=== PATIENT | female | born 1965 | race Caucasian/White ===

== ENCOUNTER 2022-02-20 15:49 | Emergency (ER) | payer OTHER, SELFPAY ==
[2022-02-20 16:04] VITALS: BP 145/90; PULSE 88; RESP 17; TEMP 37.1; O2SAT 98; BMI 26.1
[2022-02-20 16:11] LABS: Color,Urine Dark Yellow (Yellow)
[2022-02-20 16:12] LABS: Apearance,Urine Cloudy (Clear); Blood, Urine 2+ (Negative); Glucose,Urine (UA) Negative (Negative); Ketones,Urine Negative (Negative); Protein,Urine 1+ (Negative); Specific Gravity, Urine >= 1.030 (1.005-1.030)
[2022-02-20 16:13] LABS: Bilirubin,Urine Negative (Negative); UTC Leukocyte Esterase,Urine 1+ (Negative); UTC Nitrate,Urine Negative (Negative); Urobilinogen,Urine 0.2 EU/dl (0.2)
--- NOTE | 2022-02-20 16:35 | HMH.EDUTC ---
[facility] [place] Disposition Clinical Impression: UTI (urinary tract infection) Qualifiers: Urinary tract infection type: site unspecified Hematuria presence: with hematuria Qualified Code(s): N39.0 - Urinary tract infection, site not specified Disposition: Home, Self-Care Condition on Discharge: Good Instructions: Urinary Tract Infection, DI for Urinary Tract Infection (UTI) Additional Instructions: Drink plenty of fluids. Take tylenol or ibuprofen for pain or fever. Take the medications as directed. Follow up with your regular doctor. GO TO THE ER FOR ANY WORSENING SYMPTOMS The pyridium will make your urine turn orange, this is an expected side effect. It will stain your clothes if it comes into contact with them. We will culture the urine. That will tell what bacteria is causing your infection and which antibiotics will treat it best. Sometimes the first antibiotic we prescribe turns out to not work against different bacteria. So, make sure you follow up within 3 days if you are not getting better. Prescriptions: Sulfamethoxazole/Trimethoprim [Bactrim DS tablet] 1 each PO BID 7 Days #14 tab Transmission Status: Received by [facility] Fluconazole [Diflucan 150mg tab] 150 mg PO ONCE #1 tab Transmission Status: Received by [facility] Nystatin [Nystatin Cr 100,000 Units/GM 30GM] 1 applicatio TP BID 14 Days #1 gm Transmission Status: Received by [facility] Phenazopyridine HCl [Pyridium 200mg Tablet] 200 pow PO TID #6 tab Transmission Status: Received by [facility] Referrals: Provider,Referral, [Primary Care Provider] - Forms: Work/School Release Time of Disposition: 16:38 Medical Decision Making - Medical Records Medical records reviewed: No: I reviewed the patient's medical records. - Simba Inquiry Pt receiving controlled substance: No Vital Signs: 02/20/22 16:04 02/20/22 16:39 Temperature 98.7 F 98.7 F Temperature Source Oral Pulse Rate 88 Pulse Rate [Left] 88 Respiratory Rate 17 17 Blood Pressure 145/90 H Blood Pressure [Right Arm] 145/90 H Blood Pressure Mean [Right Arm] 108 02 Sat by Pulse Oximetry 98 - Lab Data Lab results reviewed: Yes: I reviewed the patient's lab results. Lab Results 02/20/22 16:11: Urine Color Dark yellow, Urine Appearance Cloudy, Urine pH 6.0, Ur Specific [place] >= 1.030, Urine Protein 1+, Urine Glucose (UA) Negative, Urine Ketones Negative, Urine Blood 2+, Urine Nitrate Negative, Urine Bilirubin Negative, Urine Urobilinogen 0.2, Ur Leukocyte Esterase 1+ A Orders (Tests/Meds): ORDERS Category Date Time Status Urine Culture Stat Micro 02/20/22 16:02 Received [facility] HPI - General Stated complaint: Possible UTI Time Seen by Provider: 02/20/22 16:35 Description of Symptoms (Recalled from Triage Doc. by RN): patient comes in for possible uti. patient states that symptoms began sunday HEENT Symptoms (Recalled from RN notes): No Resp Symptoms (Recalled from RN notes): No Skin Symptoms (Recalled from RN notes): No MS Symptoms (Recalled from RN notes): No Functional Status (Recalled from RN notes): wnl - History of Present Illness Provider Complaint: She states that for the past 2 days she has had burning with urination, low back pain and urinary frequency. - Related Data Previous Rx's Medication Instructions Recorded sulfamethoxazole 800 1 tab PO Q12H 10 Days #20 tab 01/27/21 mg-trimethoprim 160 mg tablet Azithromycin [Z-Fredy 250mg Tab*] 250 mg PO UD DOSE PK #6 tab 09/19/21 Fluconazole [Diflucan 150mg tab] 150 mg PO ONCE #1 tab 09/19/21 methylPREDNISolone [Medrol] 4 mg PO DIRECTED 6 Days #21 09/19/21 packet Fluconazole [Diflucan 150mg tab] 150 mg PO ONCE #1 tab 02/20/22 Nystatin [Nystatin Cr 100,000 1 applicatio TP BID 14 Days #1 gm 02/20/22 Units/GM 30GM] Phenazopyridine HCl [Pyridium 200 pow PO TID #6 tab 02/20/22 200mg Tablet] Sulfamethoxazole/Trimethoprim 1
[2022-02-20 16:39] VITALS: BP 145/90; PULSE 88; RESP 17; TEMP 37.1
== END 2022-02-20 16:42 | disposition home or self-care (01) ==
PROVIDERS: Emergency Provider Nurse Practitioner Family
DX: N39.0 Urinary tract infection, site not specified (principal); B96.89 Other specified bacterial agents as the cause of diseases classified elsewhere
CPT/HCPCS: 81003; 87086; 87088; 87186; 99212; G0463

== ENCOUNTER 2022-03-20 14:37 | Emergency (ER) | payer OTHER, SELFPAY ==
[2022-03-20 15:20] VITALS: BP 146/96; PULSE 82; RESP 18; TEMP 36.8; O2SAT 98; BMI 25.3
--- NOTE | 2022-03-20 15:46 | HMH.EDUTC ---
[facility] [place] Disposition Clinical Impression: UTI (urinary tract infection) Qualifiers: Urinary tract infection type: site unspecified Hematuria presence: without hematuria Qualified Code(s): N39.0 - Urinary tract infection, site not specified Disposition: Home, Self-Care Condition on Discharge: Good Instructions: Urinary Tract Infection, DI for Urinary Tract Infection (UTI), Cephalexin Additional Instructions: *Increase fluids. Water not Soda or Tea *Start antibiotic immediately and be sure to take as ordered for the FULL length of time although you should start to see improvement over the next 48 hours *Be SURE to follow up anytime for new or worsening symptoms with your family doctor. AND in 48 hours for urine culture results with your family doctor, if you do not have a doctor then you may call back to the [facility] for urine culture results and further treatment. We do recommend that you choose and establish care with a Primary Care Physician. AND follow up with them in 10-14 days to repeat UA to ensure infection is resolved and blood no longer present *Be sure to let your PCP know that we sent urine cultures from the [facility] so they can follow up to ensure that you area the on the correct antibiotic Call your doctor office and make appointment for 48 hours (2 days from today) to follow up and get the results of your urine culture and further treatment Prescriptions: cephALEXin [cephALEXin 500mg capsule*] 500 mg PO BID 7 Days #14 cap Transmission Status: [facility] Referrals: Provider,Referral, [Primary Care Provider] - As needed Time of Disposition: 15:49 Medical Decision Making - Simba Inquiry Pt receiving controlled substance: No Simba was queried for this patient: No Vital Signs: 03/20/22 15:20 Temperature 98.2 F Temperature Source Oral Pulse Rate [Right Brachial] 82 Respiratory Rate 18 Blood Pressure [Right Arm] 146/96 H Blood Pressure Mean [Right Arm] 112 Blood Pressure Source [Right Arm] Automatic Cuff Blood Pressure Position [Right Arm] Sitting 02 Sat by Pulse Oximetry 98 Oxygen Delivery Method Room Air - Lab Data Lab results reviewed: Yes: I reviewed the patient's lab results. Orders (Tests/Meds): ORDERS Category Date Time Status Urine Culture Stat Micro 03/20/22 15:22 Received [facility] [place] HPI - General Stated complaint: kidney pressure Time Seen by Provider: 03/20/22 15:46 Mode of Arrival: Ambulatory Source of Information: Patient Limitations: No Limitations Description of Symptoms (Recalled from Triage Doc. by RN): PATIENT C/O BLADDER PRESSURE SINCE YESTERDAY HEENT Symptoms (Recalled from RN notes): No Resp Symptoms (Recalled from RN notes): No Skin Symptoms (Recalled from RN notes): No MS Symptoms (Recalled from RN notes): No Functional Status (Recalled from RN notes): WNL - History of Present Illness Provider Complaint: Patient states that she started having some pressure in her lower abdomen and feeling of urgency and frequency yesterday like she gets with UTI States that today she was still having symptoms so she came in to get it checked out - Related Data Previous Rx's Medication Instructions Recorded sulfamethoxazole 800 1 tab PO Q12H 10 Days #20 tab 01/27/21 mg-trimethoprim 160 mg tablet Azithromycin [Z-Fredy 250mg Tab*] 250 mg PO UD DOSE PK #6 tab 09/19/21 Fluconazole [Diflucan 150mg tab] 150 mg PO ONCE #1 tab 09/19/21 methylPREDNISolone [Medrol] 4 mg PO DIRECTED 6 Days #21 09/19/21 packet Fluconazole [Diflucan 150mg tab] 150 mg PO ONCE #1 tab 02/20/22 Nystatin [Nystatin Cr 100,000 1 applicatio TP BID 14 Days #1 gm 02/20/22 Units/GM 30GM] Phenazopyridine HCl [Pyridium 200 pow PO TID #6 tab 02/20/22 200mg Tablet] Sulfamethoxazole/Trimethoprim 1 each PO BID 7 Days #14 tab 02/20/22 [Bactrim DS tablet] cephALEXin [cephALEXin 500mg 500 mg PO BID 7 Days #14 cap 03/20/22 capsule*] Allergies Allergy/AdvReac Type Severity Reaction Status D
[2022-03-20 15:51] VITALS: BP 146/96; PULSE 82; RESP 18; TEMP 36.8; O2SAT 98
[2022-03-20 16:36] LABS: Apearance,Urine Clear (Clear); Bilirubin,Urine Negative (Negative); Blood, Urine Negative (Negative); Color,Urine Yellow (Yellow); Glucose,Urine (UA) Negative (Negative); Ketones,Urine Negative (Negative); Protein,Urine Negative (Negative); UTC Leukocyte Esterase,Urine Trace (Negative); UTC Nitrate,Urine Negative (Negative); Urobilinogen,Urine 0.2 EU/dl (0.2)
== END 2022-03-20 15:55 | disposition home or self-care (01) ==
PROVIDERS: Emergency Provider Nurse Practitioner
DX: N39.0 Urinary tract infection, site not specified (principal); B96.1 Klebsiella pneumoniae [K. pneumoniae] as the cause of diseases classified elsewhere; Z16.11 Resistance to penicillins; Z16.39 Resistance to other specified antimicrobial drug
CPT/HCPCS: 81003; 87086; 87088; 87186; 99212; G0463

== ENCOUNTER 2022-05-02 17:34 | Emergency (ER) | payer OTHER, SELFPAY ==
--- NOTE | 2022-05-02 18:53 | EXP.UTC ---
Discharge Plan Disposition Patient Disposition: Home, Self-Care Condition: Good Prescriptions Prescriptions: New azithromycin [Zithromax] 250 mg tablet 250 mg PO UD DOSE PK Qty: 6 0RF Rx Instructions: Take two (2) tablets today, then one (1) tablet days #2 thru #5 benzonatate [benzonatate] 100 mg capsule 100 mg PO TIDP PRN (Reason: Cough) Qty: 30 0RF methylprednisolone 4 mg Tablets,Dose Pack 4 mg PO DIRECTED Qty: 21 0RF No Action sulfamethoxazole-trimethoprim 800-160 mg tablet 1 tab PO Q12H 10 Days Qty: 20 0RF azithromycin 250 MG tablet 250 mg PO UD DOSE PK Qty: 6 0RF Rx Instructions: Take two (2) tablets today, then one (1) tablet days #2 thru #5 methylprednisolone 4 MG tablets,dose pack 4 mg PO DIRECTED 6 Days Qty: 21 0RF fluconazole 150 MG tablet 150 mg PO ONCE Qty: 1 2RF fluconazole 150 MG tablet 150 mg PO ONCE Qty: 1 2RF phenazopyridine 200 MG tablet 200 pow PO TID Qty: 6 0RF sulfamethoxazole-trimethoprim 1 EACH tablet 1 each PO BID 7 Days Qty: 14 0RF nystatin 30 GM cream 1 applicatio TP BID 14 Days Qty: 1 2RF cephalexin 500 MG capsule 500 mg PO BID 7 Days Qty: 14 0RF phenazopyridine 200 MG tablet 200 pow PO TID Qty: 6 0RF nitrofurantoin monohyd/m-cryst 100 MG capsule 100 mg PO BID 5 Days Qty: 10 0RF ondansetron 4 MG tablet,disintegrating 4 mg PO Q8HP PRN (Reason: Nausea) Qty: 12 0RF Referrals Follow up/Referrals: Provider,Referral, MD [Primary Care Provider] - See instructions Activity Restrictions/Add. Instructions Additional Instructions/Restrictions: Drink plenty of fluids. Take tylenol or ibuprofen for pain or fever. Take the medications as directed. Follow up with your regular doctor. GO TO THE ER FOR ANY WORSENING SYMPTOMS Quarantine until you know the results of your covid-19 test. Notify your school or workplace of your results and follow their instructions regarding return to work/school. Clinical Impressions Clinical Impression: Acute bronchitis Stand Alone Forms Stand Alone Forms: Work/School Release Discharge ED Provider: Sergo Jones [facility] [place] HPI General Stated complaint: nausea, DOMINGO body aches, painful cough Time Seen by Provider: 05/02/22 18:53 History of Present Illness Provider Complaint: She states that for the past 4 days she has had a productive cough and she has felt bad. Related Data Previous Rx's Medication Instructions Recorded sulfamethoxazole 800 1 tab PO Q12H uti 10 days #20 tabs 01/27/21 mg-trimethoprim 160 mg tablet azithromycin 250 mg tablet 250 mg PO UD DOSE PK #6 tabs 09/19/21 fluconazole 150 mg tablet 150 mg PO ONCE #1 tab 09/19/21 methylprednisolone 4 mg tablets in 4 mg PO DIRECTED 6 days #21 09/19/21 a dose pack packets fluconazole 150 mg tablet 150 mg PO ONCE #1 tab 02/20/22 nystatin 100,000 unit/gram topical 1 applicatio topical BID 14 days 02/20/22 cream ##1 phenazopyridine 200 mg tablet 200 pow PO TID #6 tabs 02/20/22 sulfamethoxazole 800 1 each PO BID 7 days #14 tabs 02/20/22 mg-trimethoprim 160 mg tablet cephalexin 500 mg capsule 500 mg PO BID 7 days #14 caps 03/20/22 nitrofurantoin 100 mg PO BID 5 days #10 caps 04/03/22 monohydrate/macrocrystals 100 mg capsule ondansetron 4 mg disintegrating 4 mg PO Q8HP PRN Nausea #12 tabs 04/03/22 tablet phenazopyridine 200 mg tablet 200 pow PO TID #6 tabs 04/03/22 azithromycin 250 mg tablet 250 mg PO UD DOSE PK #6 tabs 05/02/22 (Zithromax) benzonatate 100 mg capsule 100 mg PO TIDP PRN Cough #30 caps 05/02/22 methylprednisolone 4 mg tablets in 4 mg PO DIRECTED #21 tabs 05/02/22 a dose pack Allergies Allergy/AdvReac Type Severity Reaction Status Date / Time No Known Allergies Allergy Verified 05/02/22 19:23 [facility] Social History Smoking Status: Never smoker alcohol intake: never current occupational statu
--- NOTE | 2022-05-02 18:56 | XR_ITS ---
PROCEDURE INFORMATION: Exam: XR Chest Exam date and time: 05/02/22 07:05 PM Age: 56 years old Clinical indication: Cough and other: Congestion, body aches; Patient HX: Cough, congestion, body aches since Sunday. TECHNIQUE: Imaging protocol: Radiologic exam of the chest. Views: 2 views. COMPARISON: No relevant prior studies available. FINDINGS: Lungs: Unremarkable. No consolidation. Pleural spaces: Unremarkable. No pleural effusion. No pneumothorax. Heart/Mediastinum: Unremarkable. No cardiomegaly. Bones/joints: Unremarkable. IMPRESSION: No acute findings.
[2022-05-02 19:22] VITALS: BP 151/88; PULSE 95; RESP 16; TEMP 37.3; O2SAT 99; BMI 23.6
[2022-05-02 19:35] VITALS: BP 151/88; PULSE 95; RESP 16; TEMP 37.3
== END 2022-05-02 19:38 | disposition home or self-care (01) ==
PROVIDERS: Emergency Provider Nurse Practitioner Family
DX: U07.1 COVID-19 (principal); M79.10 Myalgia, unspecified site; R05.9 Cough, unspecified; R51.9 Headache, unspecified; R11.0 Nausea; Z79.52 Long term (current) use of systemic steroids; Z79.899 Other long term (current) drug therapy
CPT/HCPCS: 71046; 99213; C9803; G0463; U0003; U0005